=== PATIENT | female | born 1965 | race Caucasian/White ===

== ENCOUNTER 2020-07-15 07:16 | Outpatient (REF) | payer OTHER, SELFPAY ==
[2020-07-15 09:05] LABS: Alanine Aminotransferase 31 U/L (0-31); Alkaline Phosphatase 111 U/L (39-117); Aspartate Amino Transferase 21 U/L (5-31); Bilirubin Direct 0.2 mg/dL (0.0-0.5); Bilirubin Total 0.5 mg/dL (0.0-1.0); Blood Urea Nitrogen 27 mg/dL (9-16); Cholesterol 175 mg/dL; Estimated Glomerular Filt Rate > 60; HDL Cholesterol 44 mg/dL; LDL Cholesterol Calculated 110 mg/dl; Total Protein 6.8 g/dL (6.5-8.0); Triglycerides 106 mg/dL
[2020-07-15 10:34] LABS: Reflex LDLD? No
== END 2020-07-15 07:17 | disposition home or self-care (01) ==
LOC: HO.LAB 07:16
PROVIDERS: PCP Internal Medicine; Visit Provider Internal Medicine
DX: E78.00 Pure hypercholesterolemia, unspecified (principal); R79.9 Abnormal finding of blood chemistry, unspecified
CPT/HCPCS: 80061; 80076; 82565; 84520

== ENCOUNTER 2020-09-22 12:18 | Outpatient (REF) | payer OTHER, SELFPAY ==
[2020-09-22 15:01] LABS: Blood Urea Nitrogen 31 mg/dL (9-16); Estimated Glomerular Filt Rate > 60
== END 2020-09-22 12:19 | disposition home or self-care (01) ==
LOC: HO.LNP 12:18
PROVIDERS: Visit Provider Internal Medicine
DX: R79.89 Other specified abnormal findings of blood chemistry (principal)
CPT/HCPCS: 82565; 84520

== ENCOUNTER 2021-01-08 10:01 | Outpatient (REF) | payer OTHER, SELFPAY ==
[2021-01-08 10:04] LABS: MANUAL DIFF FLAG NO
[2021-01-08 10:14] LABS: Basophils Percent Auto 0.8 % (0-2); Eosinophils Absolute Auto 0.1 X10*3/uL (0.0-0.4); Hemoglobin 12.8 g/dl (12.0-16.0); Imm Gran Abs Auto 0.01 X10*3/uL (0.00-0.03); Imm Gran Pct Auto 0.2 % (0.0-0.4); Mean Platelet Volume 10.8 fL (9.4-12.3); Monocytes Absolute Auto 0.3 X10*3/uL (0.1-1.2); Neutrophils Absolute Auto 2.4 X10*3/uL (2.0-8.3); Platelet Count 285 X10*3/uL (160-400); Red Cell Distribution Width 13.8 % (11.0-16.0); White Blood Count 4.9 X10*3/uL (4.8-10.8)
[2021-01-08 10:24] LABS: Glucose Urine UA NEG (NEG); Leukocyte Esterase Urine NEG (NEG); Nitrite Urine NEG (NEG); Specific Gravity - Urine 1.015 (1.005-1.025); Urine Blood NEG (NEG); Urine Ketones NEG (NEG); Urine Protein NEG (NEG-TRACE)
[2021-01-08 10:29] LABS: Appearance Urine CLEAR; Color Urine YELLOW
[2021-01-08 10:48] LABS: Alanine Aminotransferase 26 U/L (0-31); Albumin Level 4.1 g/dL (3.5-5.0); Alkaline Phosphatase 116 U/L (39-117); Anion Gap 12 (12-20); Aspartate Amino Transferase 22 U/L (5-31); Bilirubin Total 0.6 mg/dL (0.0-1.0); Blood Urea Nitrogen 23 mg/dL (9-16); Carbon Dioxide 27 mmol/L (22-29); Chloride 107 mmol/L (96-108); Cholesterol 181 mg/dL; Estimated Glomerular Filt Rate > 60; Glucose Fasting 79 mg/dL (60-99); HDL Cholesterol 49 mg/dL; LDL Cholesterol Calculated 113 mg/dl; Potassium 4.2 mmol/L (3.3-5.1); Sodium 142 mmol/L (135-145); Total Protein 6.9 g/dL (6.5-8.0); Triglycerides 96 mg/dL
[2021-01-08 11:31] LABS: Reflex LDLD? No
== END 2021-01-08 10:02 | disposition home or self-care (01) ==
LOC: HO.LNP 10:01
PROVIDERS: Visit Provider Internal Medicine
DX: Z00.00 Encounter for general adult medical examination without abnormal findings (principal); E78.00 Pure hypercholesterolemia, unspecified; R79.9 Abnormal finding of blood chemistry, unspecified
CPT/HCPCS: 80053; 80061; 81003; 85025

== ENCOUNTER 2021-05-01 07:51 | Outpatient (REF) | payer OTHER, SELFPAY ==
--- NOTE | ~2021-05-01 | MM_ITS ---
EXAMINATION: BONE DENSITOMETRY CLINICAL INDICATION: Menopause. COMPARISON: Baseline BD dated 08/12/2017. TECHNIQUE: Using a Contour DXA System (software version: 13.1) manufactured by [employer], dual-energy x-ray absorptiometry was performed of the lumbar spine and left hip. The images are of good technical quality. Summary results are attached. FINDINGS: AP SPINE L1-L4: Current: BMD 1.010 g/cm2, Z-score -1.5, T-score -1.4, osteopenia, 10.5% decrease from baseline (<5% change is not significant). Baseline: BMD 1.129 g/cm2. LEFT FEMUR, NECK: Current: BMD 0.735 g/cm2, Z-score -1.8, T-score -2.2, osteopenia. Baseline: BMD 0.789 g/cm2. LEFT FEMUR, TOTAL: Current: BMD 0.883 g/cm2, Z-score -1.0, T-score -1.0, normal, 2.4% decrease from baseline (<5% change is not significant). Baseline: BMD 0.905 g/cm2. IDENTIFIED RISK FACTORS: Low calcium intake, menopause. HISTORY OF FRACTURE: None listed. MEDICATIONS: None listed. MM/XR DEXA axial skeleton IMPRESSION: 1. DIAGNOSIS: Osteopenia based on the lowest T-score value of -2.2 in the femoral neck applying World Health Organization criteria. 2. 10-YEAR FRACTURE RISK PREDICTION, FRAX: Major osteoporotic fracture (clinical spine, forearm, hip or shoulder) 8.7%. Hip fracture 1.2%. 3. Treatment Recommendations: NOF guidelines recommend consideration for treatment in postmenopausal women and men age 50 and older presenting with the following: -A hip or vertebral (clinical or morphometric) fracture. -T-score less than or equal to -2.5 at the femoral neck or spine after appropriate evaluation to exclude secondary causes. -Low bone mass at the hip or spine and a 10-year fracture probability by FRAX of greater than or equal to 3% for hip fracture or greater than or equal to 20% for major osteoporotic fracture based on the [place] adapted WHO algorithm. 4. Other Recommendations: All treatment decisions require clinical judgment and consideration of individual patient factors, including patient preferences, comorbidities, previous drug use, risk factors not captured in the FRAX model (e.g. frailty, falls, vitamin D deficiency, increased bone turnover, interval significant decline in bone density) and possible under or overestimation of fracture risk by FRAX. Additional medical evaluation for secondary cause of low bone mineral density may be appropriate. FUTURE SCAN RECOMMENDATION: People with diagnosed cases of osteoporosis or at high risk for fracture should have regular bone mineral density tests. For patients eligible for Medicare, routine testing is allowed once every 2 years. The testing frequency can be increased to one year for patients who have rapidly progressing disease, those who are receiving or discontinuing medical therapy to restore bone mass, or have additional risk factors.
--- NOTE | ~2021-05-01 | MM_ITS ---
EXAMINATION: MM SCREENING DIGITAL BREAST TOMOSYNTHESIS, BILATERAL CLINICAL INFORMATION: Screening. Asymptomatic. The lifetime risk of breast cancer based on the Tyrer-Cuzick Model is 9%. COMPARISON: Mammography: 09/27/2019, 06/17/2018, 02/21/2017 TECHNIQUE: Digital breast tomosynthesis is performed in both the craniocaudal and mediolateral oblique views along with computer-aided detection (CAD). Synthesized 2D images are generated from the tomosynthesis. FINDINGS: The breasts are almost entirely fatty (ACR BI-RADS breast composition Category a). There are no significant masses, abnormal calcifications, or other abnormalities. Background stromal markings are stable. No developing density. The axilla and skin contours are unremarkable. MM/MM tomosynthesis screening BI IMPRESSION: No mammographic evidence of malignancy. ASSESSMENT: BI-RADS 1: Negative RECOMMENDATION: Routine annual mammography screening. This patient's information was entered into a reminder system with a target due date for their next mammogram.
== END 2021-05-01 07:52 | disposition home or self-care (01) ==
LOC: HO.MAMMO 07:51
PROVIDERS: Visit Provider Internal Medicine
DX: Z12.31 Encounter for screening mammogram for malignant neoplasm of breast (principal); Z13.820 Encounter for screening for osteoporosis; Z78.0 Asymptomatic menopausal state
CPT/HCPCS: 77063; 77067; 77080

== ENCOUNTER 2021-07-20 10:10 | Outpatient (REF) | payer OTHER, SELFPAY ==
[2021-07-20 10:50] LABS: Alanine Aminotransferase 22 U/L (0-31); Albumin Level 3.9 g/dL (3.5-5.0); Alkaline Phosphatase 108 U/L (39-117); Aspartate Amino Transferase 18 U/L (5-31); Bilirubin Direct 0.2 mg/dL (0.0-0.5); Bilirubin Total 0.7 mg/dL (0.0-1.0); Cholesterol 173 mg/dL; HDL Cholesterol 47 mg/dL; LDL Cholesterol Calculated 92 mg/dl; Total Protein 6.7 g/dL (6.5-8.0); Triglycerides 174 mg/dL
[2021-07-20 11:00] LABS: Reflex LDLD? No
== END 2021-07-20 10:11 | disposition home or self-care (01) ==
LOC: HO.LNP 10:10
PROVIDERS: Visit Provider Internal Medicine
DX: E78.00 Pure hypercholesterolemia, unspecified (principal)
CPT/HCPCS: 80061; 80076

== ENCOUNTER 2022-01-26 10:43 | Outpatient (REF) | payer OTHER, SELFPAY ==
[2022-01-26 10:46] LABS: MANUAL DIFF FLAG NO
[2022-01-26 11:30] LABS: Appearance Urine CLEAR; Color Urine YELLOW; Glucose Urine UA NEG (NEG); Leukocyte Esterase Urine TRACE (NEG); Nitrite Urine NEG (NEG); Specific Gravity - Urine 1.025 (1.005-1.025); Urine Blood TRACE (NEG); Urine Ketones NEG (NEG); Urine Protein NEG (NEG-TRACE)
[2022-01-26 11:46] LABS: Bacteria Urine TRACE /LPF; RBC Urine 0-2 /HPF (0); Squamous Epithelial Cell Urine 1+ /LPF; WBC Urine 0-2 /HPF (0-4)
[2022-01-26 11:52] LABS: Basophils Percent Auto 0.8 % (0-2); Eosinophils Absolute Auto 0.1 X10*3/uL (0.0-0.4); Eosinophils Percent Auto 2.4 % (0-4); Hematocrit 38.1 % (37.0-47.0); Hemoglobin 12.2 g/dl (12.0-16.0); Imm Gran Abs Auto 0.01 X10*3/uL (0.00-0.03); Imm Gran Pct Auto 0.2 % (0.0-0.4); Lymphocytes Absolute Auto 2.2 X10*3/uL (1.2-4.9); Mean Corpuscular Hemoglobin 31.9 pg (27.0-33.0); Mean Corpuscular Volume 99.5 fL (80.0-98.0); Mean Platelet Volume 10.9 fL (9.4-12.3); Monocytes Absolute Auto 0.3 X10*3/uL (0.1-1.2); Monocytes Percent Auto 6.5 % (2-11); Neutrophils Absolute Auto 2.4 x10*3/uL (2.0-8.3); Neutrophils Percent Auto 47.1 % (45-73); Platelet Count 276 X10*3/uL (160-400); Red Blood Count 3.83 X10*6/uL (4.20-5.50); White Blood Count 5.1 X10*3/uL (4.8-10.8)
[2022-01-26 12:32] LABS: Alanine Aminotransferase 28 U/L (0-31); Albumin Level 3.9 g/dL (3.5-5.0); Alkaline Phosphatase 117 U/L (39-117); Anion Gap 13 (12-20); Aspartate Amino Transferase 20 U/L (5-31); Bilirubin Total 0.5 mg/dL (0.0-1.0); Blood Urea Nitrogen 19 mg/dL (9-16); Calcium 8.7 mg/dL (8.4-10.2); Carbon Dioxide 23 mmol/L (22-29); Chloride 107 mmol/L (96-108); Cholesterol 177 mg/dL; Estimated Glomerular Filt Rate > 60; Glucose Fasting 91 mg/dL (60-99); HDL Cholesterol 43 mg/dL; LDL Cholesterol Calculated 98 mg/dl; Potassium 4.3 mmol/L (3.3-5.1); Sodium 139 mmol/L (135-145); Total Protein 6.7 g/dL (6.5-8.0); Triglycerides 183 mg/dL
== END 2022-01-26 10:44 | disposition home or self-care (01) ==
LOC: HO.LNP 10:43
PROVIDERS: PCP Internal Medicine; Visit Provider Internal Medicine
DX: Z00.00 Encounter for general adult medical examination without abnormal findings (principal); E78.00 Pure hypercholesterolemia, unspecified; Z87.448 Personal history of other diseases of urinary system
CPT/HCPCS: 80053; 80061; 81001; 85025

== ENCOUNTER 2022-03-05 09:46 | Outpatient (REF) | payer OTHER, SELFPAY ==
--- NOTE | ~2022-03-05 | FL_ITS ---
EXAMINATION: XR FLUOROSCOPY UPPER GI WITH AIR CLINICAL INFORMATION: Food stuck sensation. Question Schatzki's ring. Dysphagia. COMPARISON: None TECHNIQUE: Routine upper GI air-contrast study was performed with thick barium and effervescent granules in upright and lying position. Barium swallow. FINDINGS: Following oral administration of thick barium and effervescent granules in upright view, there is normal propagation bolus from the oral cavity through the pharynx, esophagus into stomach without any evidence of obstruction, narrowing or stricture. The mucosal pattern of the esophagus is normal. There is a sliding hiatal hernia. On placing patient supine and prone lying, the rest of the visualized course and caliber of the stomach, duodenal bulb and the sweep is normal. The mucosal pattern of the stomach and the duodenum is normal. There is moderate gastroesophageal reflux into the upper esophagus. Mild noncircumferential indentation seen along the left distal esophagus is likely the GE junction. Incidental finding of cholecystectomy. FLUOROSCOPY TIME: 1.9 minutes DOSE AREA PRODUCT: 44.270 uGy-m2 (microgray-meter squared) FL/FL upper GI w air IMPRESSION: 1. Large gastroesophageal reflux with sliding hiatal hernia. 2. The rest of the upper GI exam and the esophagus appears unremarkable.
== END 2022-03-05 09:47 | disposition home or self-care (01) ==
LOC: HO.XRAY 09:46
PROVIDERS: PCP Internal Medicine; Visit Provider Internal Medicine
DX: R13.10 Dysphagia, unspecified (principal)
CPT/HCPCS: 74246

== ENCOUNTER 2022-08-06 10:49 | Outpatient (REF) | payer OTHER, SELFPAY ==
[2022-08-06 12:19] LABS: Alanine Aminotransferase 26 U/L (0-31); Albumin Level 3.8 g/dL (3.5-5.0); Alkaline Phosphatase 121 U/L (39-117); Aspartate Amino Transferase 21 U/L (5-31); Bilirubin Direct 0.2 mg/dL (0.0-0.5); Bilirubin Total 0.4 mg/dL (0.0-1.0); Cholesterol 168 mg/dL; HDL Cholesterol 44 mg/dL; LDL Cholesterol Calculated 96 mg/dl; Total Protein 6.4 g/dL (6.5-8.0); Triglycerides 141 mg/dL
[2022-08-06 13:27] LABS: Reflex LDLD? No
== END 2022-08-06 10:50 | disposition home or self-care (01) ==
LOC: HO.LNP 10:49
PROVIDERS: Visit Provider Internal Medicine
DX: E78.00 Pure hypercholesterolemia, unspecified (principal)
CPT/HCPCS: 80061; 80076

== ENCOUNTER 2022-09-24 06:57 | Day surgery (SDC) | payer OTHER, SELFPAY ==
--- NOTE | 2022-09-23 10:10 | HO.ANESPROP2 ---
Documented by User: Yamileth Amador NP 09/23/22 10:11 HPI - Anesthesia Eval Consult details Narrative: 57yo F for [facility] End[facility] Past Medical History Medical History Asthma magdi Colon polyps Depression GERD (gastroesophageal reflux disease) Hyperlipemia Tubular adenoma Surgical History Surgical History Hx of cholecystectomy Hx of colonoscopy Social History Social History Patient Tobacco Use Status: Never used Tobacco Are you DNR?: No Advance Directives: No Advance Directives Information Provided: Yes Meds Allergies Allergy/AdvReac Type Severity Reaction Status Date / Time No Known Allergies Allergy Unverified 04/10/20 15:08 Home Medications Medication Instructions Recorded Confirmed Last Taken Type albuterol sulfate 90 mcg/actuation 2 puff inhalation DAILY 09/23/22 09/23/22 Unknown History aerosol inhaler atorvastatin 40 mg tablet 1 tab PO DAILY 09/23/22 09/23/22 Unknown History citalopram 40 mg tablet 1 tab PO DAILY 09/23/22 09/23/22 Unknown History omeprazole 20 mg capsule,delayed 1 cap PO QAM 09/23/22 09/23/22 Unknown History release Exam Exam Date and Time: September 23, 2022 101 Assessment and Plan Assessment Anesthesia Assessment: Chart Reviewed Documented by User: Amina King MD 09/24/22 07:56 [facility] Past Medical History Medical History Asthma magdi Colon polyps Depression GERD (gastroesophageal reflux disease) Hyperlipemia Tubular adenoma Functional capacity: independent ambulation Patient : No Family History Family history of problems with anesthesia: No Surgical History Surgical History Hx of cholecystectomy Hx of colonoscopy History of Problems with Anesthesia: No Social History Social History Patient Tobacco Use Status: Never used Tobacco Are you DNR?: No Advance Directives: No Advance Directives Information Provided: Yes Meds Allergies Allergy/AdvReac Type Severity Reaction Status Date / Time No Known Allergies Allergy Unverified 04/10/20 15:08 Home Medications Medication Instructions Recorded Confirmed Last Taken Type albuterol sulfate 90 mcg/actuation 2 puff inhalation DAILY 09/23/22 09/23/22 Unknown History aerosol inhaler atorvastatin 40 mg tablet 1 tab PO DAILY 09/23/22 09/23/22 Unknown History citalopram 40 mg tablet 1 tab PO DAILY 09/23/22 09/23/22 Unknown History omeprazole 20 mg capsule,delayed 1 cap PO QAM 09/23/22 09/23/22 Unknown History release Exam Airway Mallampati Class: III TM Dist: >3cm Neck ROM: Full Heart: RRR Lungs: CTA Assessment and Plan Final Anesthetic Review Family History of Problems with Anesthesia: No History of Problems with Anesthesia: No NPO: Yes ASA Class: II Final Preanesthetic Review: No Changes in Pt Med Stat, Meds/Allgs Chart Reviewed, Consent Obtained/Reviewed and Anes Risks/Benef Reviewed Patient Risk: Low Procedure Risk: Low Anesthetic Plan Anesthetic Plan: MAC: Disposition: Standard PACU
[2022-09-24 06:06] VITALS: BMI 39.5
[2022-09-24 07:03] VITALS: BP 127/67; PULSE 73; RESP 18; TEMP 36.6; O2SAT 98
--- NOTE | 2022-09-24 07:10 | PC.NURSE ---
no meds takne today
[2022-09-24] MEDS: Lactated Ringers 1,000 ML 100 ML IVCONT (07:19)
--- NOTE | 2022-09-24 08:21 | MHC.SHP ---
Pre-Procedural Eval Section A Date of Service: 09/24/22 Section B Chief Complaint: screening,reflux Details of Present Illness: see h&P no chnages Relevant Family History (Specify if Yes): No Relevant Social History: None Present Medications: see Short Stay Collaborative assessment Medical History: No relevant PMH History of Previous Operations: No relevant previous surgery Allergies: Allergies Allergy/AdvReac Type Severity Reaction Status Date / Time No Known Allergies Allergy Unverified 04/10/20 15:08 Review of Systems Sugical H&P ROS: Negative: Constitution, Cardiovascular, Respiratory, Neurological, Psychiatric, Hem-Onc, Allergic/Immunologic, Gastrointestinal, Genitourinary, Musculoskeletal, Integumentary, Endocrine and Eyes/Ears/Nose/Throat Exam Surgical H&P Exam: Normal: HEENT, Normal: Heart, Normal: Lungs, Normal: Extremities, Normal: Abdomen, Normal: Skin and Normal: Neurological Plan Diagnosis/Plan: Unchanged I have reviewed the history and physical and performed a pertinent physical examination on my patient. No changes have occurred unless specified. Time Spent With Patient Time: Total time managing care of this patient today ____ minutes.
--- NOTE | 2022-09-24 09:05 | P.BOP_ITS ---
Brief Operative Note Date of Service: 09/24/22 Pre-op diagnosis: gerd screening Post-op diagnosis: same Procedure: egd colon Surgeon: Steven Rehman Anesthesia: MAC Was an Wet Chemistry Analyst used for this Procedure?: No Estimated blood loss (mL): 2 Pathology: other Condition: stable Disposition: PACU
[2022-09-24 09:07] VITALS: BP 96/52; PULSE 82; RESP 16; TEMP 36.1; O2SAT 96
[2022-09-24 09:22] VITALS: BP 116/73; PULSE 63; RESP 18; TEMP 37; O2SAT 96
--- NOTE | 2022-09-24 09:27 | HO.POSTANES ---
Post Anesthesia Evaluation Post Anesthesia Evaluation Vital Signs: Vital Signs Temp Pulse Resp BP Pulse Ox O2 Del Method O2 Flow Rate 09/24/22 09:07 97.0 F 82 16 96/52 L 96 Nasal Cannula 3 09/24/22 07:03 98 F 73 18 127/67 98 Room Air Anesthesia: Monitored Mental Status: Awake Pain Control: Satisfactory Nausea/Vomiting: None Hydration: Adequate Anesthesia-Related Issues: No Anes. Related Issues
--- NOTE | 2022-09-24 10:03 | OP_ITS ---
SURGEON: Steven Rehman MD INDICATIONS: Gastroesophageal reflux disease and colon cancer screening. PREOPERATIVE DIAGNOSIS: POSTOPERATIVE DIAGNOSIS: PROCEDURE PERFORMED: Upper endoscopy and colonoscopy. ESTIMATED BLOOD LOSS: COMPLICATIONS: ANESTHESIA: Monitored anesthesia care. ASSISTANTS: SPECIMENS: DESCRIPTION OF PROCEDURE: The procedure was performed on 09/24/2022. History and physical was performed. The risks and benefits of the procedure were explained to the patient. Informed consent was obtained. The patient was placed in the left lateral decubitus position. The Olympus video gastroscope was introduced into the esophagus, stomach, and duodenum. Examination was performed. The scope was removed. She was repositioned for colonoscopy. Digital rectal exam was performed and was found to be normal. The Olympus pediatric video colonoscope was introduced into the rectum and advanced to the cecum without difficulty. The cecum was identified by transillumination, palpation, and identification of the ileocecal valve. Examination was performed. The scope was removed. She tolerated both procedures well and was taken to the recovery area in stable condition. FINDINGS: Upper endoscopy: 1. Esophagus: The esophagus showed an irregular EG junction. There was no esophagitis. Biopsies were obtained from the EG junction. There was a small sliding hiatal hernia. 2. Stomach: The stomach showed no evidence of masses, ulcers, or polyps. Antral biopsies were obtained to evaluate for H pylori. 3. Duodenum: The bulb and 2nd portion were normal. Biopsies were obtained because of the patient's family history of celiac disease. Colonoscopy: The terminal ileum was normal. The visualized colonic mucosa was normal. The quality of the prep was good. There was no evidence of ileitis or colitis. There were a total of 3 polyps that were removed. All were less than 10 mm. Polyps in the right colon and at 80 cm were removed with the biopsy forceps. A polyp at 40 cm was removed with a cold snare. No other polyps were identified. Retroflexed examination showed internal hemorrhoids. IMPRESSION: Colon polyps, gastroesophageal reflux disease. RECOMMENDATION: Follow up the biopsy results. MD VIKTOR Estrada/VINCENT / [id number] MTDD
== END 2022-09-24 09:35 | disposition home or self-care (01) ==
PROVIDERS: PCP Internal Medicine; Visit Provider Internal Medicine Gastroenterology
PROC: (CPT 45385; principal; 2022-09-24 08:20)
DX: Z12.11 Encounter for screening for malignant neoplasm of colon (principal); Z86.010 Personal history of colon polyps; Z83.71 Family history of colonic polyps; D12.2 Benign neoplasm of ascending colon; D12.4 Benign neoplasm of descending colon; D12.5 Benign neoplasm of sigmoid colon; K64.8 Other hemorrhoids; K21.9 Gastro-esophageal reflux disease without esophagitis; K44.9 Diaphragmatic hernia without obstruction or gangrene; R06.6 Hiccough; Z83.79 Family history of other diseases of the digestive system; E78.00 Pure hypercholesterolemia, unspecified; J45.909 Unspecified asthma, uncomplicated; F32.A Depression, unspecified; Z79.899 Other long term (current) drug therapy; Z90.49 Acquired absence of other specified parts of digestive tract
CPT/HCPCS: 45385; 45380; 43239; 88305; 88342

== ENCOUNTER 2023-01-24 10:28 | Outpatient (REF) | payer OTHER, SELFPAY | END 2023-01-24 10:29 | disposition home or self-care (01) | LOC: HO.LNP 10:28 | PROVIDERS: Visit Provider Internal Medicine | DX: Z00.00 Encounter for general adult medical examination without abnormal findings (principal); E78.00 Pure hypercholesterolemia, unspecified | CPT/HCPCS: 80053; 80061; 81001; 85025 ==

== ENCOUNTER 2023-08-09 10:40 | Outpatient (REF) | payer OTHER, SELFPAY ==
[2023-08-09 11:16] LABS: Alanine Aminotransferase 26 U/L (0-31); Albumin Level 3.9 g/dL (3.5-5.0); Alkaline Phosphatase 107 U/L (39-117); Aspartate Amino Transferase 20 U/L (5-31); Bilirubin Direct 0.2 mg/dL (0.0-0.5); Bilirubin Total 0.5 mg/dL (0.0-1.0); Cholesterol 154 mg/dL (<200); HDL Cholesterol 41 mg/dL (>40); LDL Cholesterol Calculated 89 mg/dL (<100); Total Protein 7.1 g/dL (6.5-8.0); Triglycerides 122 mg/dL (<150)
== END 2023-08-09 10:41 | disposition home or self-care (01) ==
LOC: HO.LNP 10:40
PROVIDERS: Visit Provider Internal Medicine
DX: E78.00 Pure hypercholesterolemia, unspecified (principal)
CPT/HCPCS: 80061; 80076

== ENCOUNTER 2024-02-03 11:18 | Outpatient (REF) | payer OTHER, SELFPAY ==
[2024-02-03 11:21] LABS: MANUAL DIFF FLAG NO
[2024-02-03 12:00] LABS: Basophils Absolute Auto 0.1 X10*3/uL (0.0-0.2); Basophils Percent Auto 1.2 % (0-2); Eosinophils Absolute Auto 0.1 X10*3/uL (0.0-0.4); Eosinophils Percent Auto 2.1 % (0-4); Hematocrit 36.7 % (37.0-47.0); Hemoglobin 12.4 g/dl (12.0-16.0); Lymphocytes Absolute Auto 1.6 X10*3/uL (1.2-4.9); Mean Corpuscular HGB Conc 33.8 g/dl (31.0-35.0); Mean Corpuscular Hemoglobin 33.4 pg (27.0-33.0); Mean Corpuscular Volume 98.9 fL (80.0-98.0); Monocytes Absolute Auto 0.4 X10*3/uL (0.1-1.2); Monocytes Percent Auto 8.4 % (2-11); Neutrophils Absolute Auto 2.2 x10*3/uL (2.0-8.3); Neutrophils Percent Auto 51.3 % (45-73); Platelet Count 260 X10*3/uL (160-400); Red Blood Count 3.71 X10*6/uL (4.20-5.50); Red Cell Distribution Width 13.9 % (11.0-16.0); White Blood Count 4.3 X10*3/uL (4.8-10.8)
[2024-02-03 12:06] LABS: Appearance Urine Clear; Color Urine Yellow; Glucose Urine UA Negative (Negative); Leukocyte Esterase Urine Negative (Negative); Nitrite Urine Negative (Negative); Urine Blood Negative (Negative); Urine Ketones Negative (Negative); Urine Protein Negative (Neg-Trace)
[2024-02-03 12:13] LABS: Bacteria Urine None Seen (None Seen); Hyaline Casts Urine 0-2 /LPF (0-2); RBC Urine 0-2 /HPF (0-2); Squamous Epithelial Cell Urine 0-2 /HPF (0-2); WBC Urine 0-5 /HPF (0-5)
[2024-02-03 12:31] LABS: Alanine Aminotransferase 27 U/L (0-31); Alkaline Phosphatase 109 U/L (39-117); Anion Gap 12 (12-20); Aspartate Amino Transferase 19 U/L (5-31); Bilirubin Total 0.5 mg/dL (0.0-1.0); Blood Urea Nitrogen 24 mg/dL (9-16); Calcium 9.4 mg/dL (8.4-10.2); Carbon Dioxide 24 mmol/L (22-29); Chloride 107 mmol/L (96-108); Cholesterol 149 mg/dL (<200); Estimated Glomerular Filt Rate > 60; Glucose Fasting 94 mg/dL (60-99); HDL Cholesterol 37 mg/dL (>40); LDL Cholesterol Calculated 89 mg/dL (<100); Potassium 4.3 mmol/L (3.3-5.1); Sodium 139 mmol/L (135-145); Triglycerides 115 mg/dL (<150)
== END 2024-02-03 11:19 | disposition home or self-care (01) ==
LOC: HO.LNP 11:18
PROVIDERS: Visit Provider Internal Medicine
DX: Z00.00 Encounter for general adult medical examination without abnormal findings (principal); E78.00 Pure hypercholesterolemia, unspecified
CPT/HCPCS: 80053; 80061; 81001; 85025

== ENCOUNTER 2024-02-28 10:12 | Outpatient (REF) | payer OTHER, SELFPAY ==
--- NOTE | ~2024-02-28 | US_ITS ---
EXAMINATION: US EXTRACRANIAL CAROTID DUPLEX, BILATERAL CLINICAL INFORMATION: Bruit COMPARISON: Carotid duplex 01/17/2019 TECHNIQUE: Real-time ultrasound and Doppler techniques (integrating B-mode 2-D vascular images, Doppler spectral analysis and color-flow Doppler imaging) were utilized to interrogate the extracranial carotid arteries, the vertebral arteries and proximal subclavian arteries bilaterally. The degree of stenosis is determined by criteria similar to NASCET. FINDINGS: Right Side: 1. There is mild atherosclerotic plaque seen in the bifurcation/proximal ICA region. 2. The common carotid artery PSV proximally is 106 cm/s and distally 91.5 cm/s. 3. The proximal internal carotid artery velocities are 91.5 cm/s systolic and 27.6 cm/s diastolic. 4. The proximal external carotid artery PSV is 149 cm/s. 5. The vertebral artery shows antegrade flow. 6. The subclavian artery waveforms are normal. Left Side: 1. There is mild atherosclerotic plaque seen in the bifurcation/proximal ICA region. 2. The common carotid artery PSV proximally is 130 cm/s and distally 84.4 cm/s. 3. The proximal internal carotid artery velocities are 99.7 cm/s systolic and 30.5 cm/s diastolic. 4. The proximal external carotid artery PSV is 125 cm/s. 5. The vertebral artery shows antegrade flow. 6. The subclavian artery waveforms are normal. US/US carotid duplex BI IMPRESSION: 1. RIGHT: Minimal, non-hemodynamically significant stenosis of the proximal right internal carotid artery corresponding to a 0-49% stenosis by velocity criteria. 2. LEFT: Minimal, non-hemodynamically significant stenosis of the proximal left internal carotid artery corresponding to a 0-49% stenosis by velocity criteria. 3. There is no change in the category severity of disease when compared to the previous study dated 01/17/2019.
== END 2024-02-28 10:13 | disposition home or self-care (01) ==
LOC: HO.US 10:12
PROVIDERS: PCP Internal Medicine; Visit Provider Internal Medicine
DX: R09.89 Other specified symptoms and signs involving the circulatory and respiratory systems (principal)
CPT/HCPCS: 93880

== ENCOUNTER 2024-08-16 07:15 | Outpatient (REF) | payer OTHER, SELFPAY ==
[2024-08-16 11:26] LABS: MANUAL DIFF FLAG NO
[2024-08-16 11:35] LABS: Basophils Absolute Auto 0.1 X10*3/uL (0.0-0.2); Eosinophils Absolute Auto 0.1 X10*3/uL (0.0-0.4); Eosinophils Percent Auto 1.9 % (0-4); Hemoglobin 11.8 g/dl (12.0-16.0); Imm Gran Abs Auto 0.01 X10*3/uL (0.00-0.03); Imm Gran Pct Auto 0.2 % (0.0-0.4); Lymphocytes Absolute Auto 1.8 X10*3/uL (1.2-4.9); Lymphocytes Percent Auto 34.4 % (20-40); Mean Corpuscular HGB Conc 32.8 g/dl (31.0-35.0); Mean Corpuscular Hemoglobin 32.5 pg (27.0-33.0); Mean Corpuscular Volume 99.2 fL (80.0-98.0); Mean Platelet Volume 10.7 fL (9.4-12.3); Monocytes Absolute Auto 0.4 X10*3/uL (0.1-1.2); Monocytes Percent Auto 8.3 % (2-11); Neutrophils Absolute Auto 2.8 x10*3/uL (2.0-8.3); Neutrophils Percent Auto 54.2 % (45-73); Platelet Count 262 X10*3/uL (160-400); Red Blood Count 3.63 X10*6/uL (4.20-5.50); White Blood Count 5.2 X10*3/uL (4.8-10.8)
--- OUTSIDE RECORDS SUMMARY | 2024-08-16 13:50 | XMS_ITS ---
Author Organization Nishant Amador MD Address [address] [place] [phone] Care Team Providers Care Career Center Director Name Role Phone Nishant Amador Primary Care Provider REASON FOR VISIT New Refill Request Medications Medication SIG (Take, Route, Frequency, Duration) Notes Start Date End Date Status Citalopram Hydrobromide 40 MG 1 tablet Orally Once a day for 90 days Active Atorvastatin Calcium 40 MG take 1 tablet by mouth every day Orally Once a day for 90 days Active Encounters Encounter Location Date Provider Diagnosis Nishant Amador MD [address] [place] [phone] 02/24/2024 Nishant Amador Depression F32.9 and Pure hypercholesterolemia E78.00 Assessments Encounter Date Diagnosis (ICD Code) Assessment Notes Treatment Notes Treatment Clinical Notes Section Notes 02/24/2024 Depression (ICD-10 - F32.9) 02/24/2024 Pure hypercholesterolemia (ICD-10 - E78.00) Plan Of Treatment Medication Medication Name Sig Start Date Stop Date Notes Citalopram Hydrobromide 40 MG 1 tablet O rally Once a day for 90 days Atorvastatin Calcium 40 MG take 1 tablet by mouth every day Orally Once a day for 90 days Next Appt Details Provider Name:Nishant Arguello renér, 02/05/2025 07:45:00 AM, [address] [facility], Suite [facility], [place], [place], [phone], Provider Name:Nishant Arguello renér, 02/12/2025 02:30:00 PM, [address] [facility], [address], [place], [place], [phone], Progress Notes * Funmilayo LI ADOB:[birth year] (59 yo F)Acc No.[id number]:02/24/2024 Patient:?Funmilayo Li :1965???Age:59 Y???Sex:Female Address:[address] [place] [id number] * Refills? Refill Citalopram Hydrobromide Tablet, 40 MG, Orally, 90 Tablet, 1 tablet, Once a day, 90 days, Refills=3 Refill Atorvastatin Calcium Tablet, 40 MG, Orally, 90, take 1 tablet by mouth every day, Once a day, 90 days, Refills=3 * true * Date:? Generated for Eileen saucedo/Maddy/Amandeepitting on:?08/16/2024 01:50 PM EST
--- OUTSIDE RECORDS SUMMARY | 2024-08-16 13:50 | XMS_ITS ---
Author Organization Nishant Amador MD Address [address] [place] [phone] Care Team Providers Care Mechanism Assembler Name Role Phone Nishant Amador Primary Care Provider [phone] Results Component Value Reference Range Notes Complete Blood Count Auto Di ff (Not yet reviewed by provider) Interpretation: Performing Lab:[facility], [address] [place] [id number] Notes/Report: White Blood Count 5.2 4.8-10.8 X10*3/uL Red Blood Count 3.63 4.20-5.50 X10*6/uL Hemoglobin 11.8 12.0-16.0 g/dl Hematocrit 36.0 37.0-47.0 % Mean Corpuscular Volume 99.2 80.0-98.0 fL Mean Corpuscular Hemoglobin 32.5 27.0-33.0 pg Mean Corpuscular HGB Conc 32.8 31.0-35.0 g/dl Red Cell Distribution Width 14.0 11.0-16.0 % Platelet Count 262 160-400 X10*3/uL Mean Platelet Volume 10.7 9.4-12.3 fL Neutrophils Percent Auto 54.2 45-73 % Imm Gran Pct Auto 0.2 0.0-0.4 % Lymphocytes Percent Auto 34.4 20-40 % Monocytes Percent Auto 8.3 2-11 % Eosinophils Percent Auto 1.9 0-4 % Basophils Percent Auto 1.0 0-2 % NRBC Pct Auto 0.0 0.0-0.2 /100WBC Neutrophils Absolute Auto 2.8 2.0-8.3 x10*3/u L Imm Gran Abs Auto 0.01 0.00-0.03 X10*3/uL Lymphocytes Absolute Auto 1.8 1.2-4.9 X10*3/u L Monocytes Absolute Auto 0.4 0.1-1.2 X10*3/uL Eosinophils Absolute Auto 0.1 0.0-0.4 X10*3/u L Basophils Absolute Auto 0.1 0.0-0.2 X10*3/uL NRBC Abs Auto 0.000 0.0-0.012 X10*3/uL REASON FOR VISIT CBC Encounters Encounter Location Date Provider Diagnosis Nishant Amador MD [address] [place] [address] [place] [phone] 08/16/2024 Nishant Amador Neutropenia, unspecified type D70.9 Assessments Encounter Date Diagnosis (ICD Code) Assessment Notes Treatment Notes Treatment Clinical Notes Section Notes 08/16/2024 Neutropenia, unspecified type (ICD-10 - D70.9) Plan Of Treatment Pending Test Test Name Order Date Complete Blood Count Auto Diff Next Appt Details Provider Name:Nishant perla, 02/05/2025 07:45:00 AM, [address] [place] [address], [address] [place] [address], [phone], Provider Name:Nishant perla, 02/12/2025 02:30:00 PM, [address] [place] [address], [address] [place] [address], [phone], Progress Notes * Funmilayo LI ADOB:[birth year] (59 yo F)Acc No.[id number]:08/16/2024 Progress Note Patient:?Funmilayo LI Provider:?Nishant Amador MD :1965???Age:59 Y???Sex:Female D ate:08/16/2024 Address:[address] [place], [place] [id number] Subjective: * Chief Complaints: * ???1. CBC. * Medical History:? Objective: * Vitals:? Assessment: * Assessment: 1.?Neutropenia, unspecified type - D70.9 (Primary)??? Plan: * Treatment: * Procedure Codes:?87168 VENIP UNCT, ROUTINE* * * The named appointment provid er may or may not be the originator of this progress note, and it is not deemed complete until electronically signed by the appointment provider. Sign off status: Pending * Provider:?Nishant Amador MD Date:?0 08/16/2024 Generated for Eileen saucedo/Maddy/Everettesmitting on:?08/16/2024 01:50 PM EST
--- OUTSIDE RECORDS SUMMARY | 2024-08-16 13:50 | XMS_ITS ---
Author Organization Nishant Amador MD Address [address] [place] [phone] Care Team Providers Care Stevedore Hold Name Role Phone Nishant Amador Primary Care Provider [phone] Allergies No Known Allergies REASON FOR VISIT 2 MO F/U Medications Medication SIG (Take, Route, Frequency, Duration) Notes Start Date End Date Status Atorvastatin Calcium 40 MG TAKE ONE TABL ET BY MOUTH EVERY DAY for 90 Active Omeprazole 20 MG TAKE ONE CAPSULE BY MOUTH EVERY DAY 30 MINUTES BEFORE BREAKFAST for 30 Active Ventolin HFA 108 (90 Base) MCG/ACT 2 puffs Inhalation Once a day Active Citalopram Hydrobromide 40 MG TAKE ONE TABLET BY MOUTH EVERY DAY Active Aviane 0.1-20 MG-MCG 1 tablet Orally Lore ly for Three Weeks, 1 Week off Not-Taking Cyclobenzaprine HCl 5 MG 1 tablet as nee ded Orally Three times a day for 7 days 12/28/2018 Not-Taking Immunizations Vaccine Route Administration Date Status Comme nts Fluarix Quadrivalent - 150 IM Intramuscular 04/16/2024 Adm inistered Vital Signs Blood pressure systolic 132 mm Hg 04/16/20 Blood pressure diastolic 74 mm Hg 024 Height 65 in 04/16/2024 Weight 232 lbs 04/16/2024 BMI 38.60 kg/m2 04/16/2024 weight is up 2 pounds since 02-10-24 Encounters Encounter Location Date Provider Diagnosis Nishant Amador MD [address] [place] [address] [place] [phone] 04/16/2024 Nishant Amador Depression F32.9 ; Mild intermittent asthma without complication J45.20 ; Right carotid bruit R09.89 and Encounter for immunization Z23 Assessments Encounter Date Diagnosis (ICD Code) Assessment Notes Treatment Notes Treatment Clinical Notes Section Notes 04/16/2024 Depression (ICD-10 - F32.9) remains the same 04/16/2024 Mild intermittent asthma without complication (ICD-10 - J45.20) doing well and not needing inhaler 04/16/2024 Right carotid bruit (ICD-10 - R09.89) no change in minimal plaque 04/16/2024 Encounter for immunization (ICD-10 - Z23) Plan Of Treatment Medication Medication Name Sig Start Date Stop Date Notes Ventolin HFA 108 (90 Base) MCG/ACT 2 puffs Inhalation Once a day Citalopram Hydrobromide 40 MG TAKE ONE T ABLET BY MOUTH EVERY DAY Treatment Notes Assessment Notes Depression remains the same Mild intermittent asthma without complic ation doing well and not needing inhaler Right carotid bruit no change in minimal plaque Next Appt Details Provider Name:Nishant perla, 02/05/2025 07:45:00 AM, [address] [place] [address], [address], [place], [place], [phone], Provider Name:Nishant perla, 02/12/2025 02:30:00 PM, [address] [place] [address], [place] [address], [place], [place], [phone], Progress Notes * Funmilayo LI ADOB:[birth year] (59 yo F)Acc No.[id number]:04/16/2024 Progress Notes Patient:?Funmilayo Li Provider:?Nishant Amador MD :1965???Age:59 Y???Sex:Female D ate:04/16/2024 Address:[address] [place] [address] [id number] Subjective: * Chief Complaints: * ???2 MO F/U * HPI: ???Symptom(s):? patient is a 59 yo female here for 2 month follow up. * ROS:?General/Constitutional:?Denies?Chills.?Denies?Fatigue.?Denies?Fever.?Denies?Headache.?ENT:?Patient denies?decreased sense of smell, any loss of taste, sore throat.?Denies?Sore throat.?Respiratory:?Comments?used inhaler once last week.? but not usually.?Denies?Cough.?Denies?Shortness of breath at rest.?Denies?Shortness of breath with exertion.?Gastrointestinal:?Denies?Diarrhea.?Denies?Nausea.?Musculoskeletal:?Patient denies?muscle aches.?Peripheral Vascular:?Patient denies?red and blue toes.? * Medical History:? * Surgical History:? * Hospitalization/Major Diagno stic Procedure:? * Medications:?TakingVentolin HFA 108 (90 Base) MCG/ACT Aerosol Solution 2 puffs Inhalation Once a dayOmeprazole 20 MG Capsule Delayed Release TAKE ONE CAPSULE BY MOUTH EVERY DAY 30 MINUTES BEFORE BREAKFAST Atorvastatin Calcium 40 MG Tablet TAKE ONE TABLET BY MOUTH EVERY DAY Citalopram Hydrobromide 40 MG Tablet TAKE ONE TABLET BY MOUTH EVERY DAY Taking Ventolin HFA 108 (90 Base) MCG/ACT Aerosol Solution 2 puffs Inhalation Once a dayTaking Omeprazole 20 MG Capsule Delayed Release TAKE ONE CAPSULE BY MOUTH EVERY DAY 30 MINUTES BEFORE BREAKFAST Taking Atorvastatin Calcium 40 MG Tablet TAKE ONE TABLET BY MOUTH EVERY DAY Taking Citalopram Hydrobromide 40 MG Tablet TAKE ONE TABLET BY MOUTH EVERY DAY Not-Taking/PRNCyclobenzaprine HCl 5 MG Tablet 1 tablet as needed Orally Three times a dayAviane 0.1-20 MG-MCG Tablet 1 tablet Orally Daily for Three Weeks, 1 Week offMedication List reviewed and reconciled with the patientNot-Taking/PRN Cyclobenzaprine HCl 5 MG Tablet 1 tablet as needed Orally Three times a dayNot-Taking/PRN Aviane 0.1-20 MG-MCG Tablet 1 tablet Orally Daily for Three Weeks, 1 Week offMedication List reviewed and reconciled with the patient * Allergies:?N.K.D.A.yes[Aller gies Verified] Objective: * Vitals:?Ht: 65, Wt:232, BMI: 38.60, BP:132/74 weight is up 2 pounds since 02-10-24. * Examination: ???General Examination: ?GENERAL APPEARANCE:? alert, well hydrated, in no distress .?HEAD:? normocephalic.?SKIN:? good turgor.?HEART:? no murmurs, rubs, gallops, regular rate and rhythm.?LUNGS:? no wheezes, rales, rhonchi, good air movement, clear to auscultation bilaterally.? Assessment: * Assessment: 1.?Depression - F32.9 (Prima ry)?2.?Mild intermittent asthma without complication - J45.20?3.?Right carotid bruit - R09.89?4.?Encounter for immunization - Z23? Plan: * Treatment: 2.?Mild intermittent asthma without complication? Continue Ventolin HFA Aerosol Solution, 108 (90 Base) MCG/ACT, 2 puffs, Inhalation, Once a day.?? Notes: doing well and not needing inhaler?? 3.?Right carotid bruit? Notes: no change in minimal plaque?? * Immunizations:? Fluarix Quadrivalent - 150 : 0.5 mL (Dose No:1) (Route: Intramuscular) given by Christen Guajardo on Left Deltoid * Procedure Codes:?21407 IMMUN IZATION [id number] FLU VACCINE NO PRESERV 3 & > * Preventive Medicine:? ??Immunizations:?Influenza?Have you had a flu shot since the most recent March 25??Yes.? * * Sign off status: Completed true * Provider:?Nishant Amador MD Date:?0 04/16/2024 Generated for Rosei sheryl/Maddy/eTransmitting on:?08/16/2024 01:50 PM EST History and Physical Notes * HPI (History of Present Illness) Category Sub-Category Detail Notes Category Not es Symptom(s) patient is a 59 yo female here for 2 month follow up. Examination Category Sub-Category Detail Notes Category Not es General Examination GENERAL APPEARANCE: alert, w ell hydrated, in no distress HEAD: normocephalic HEART: no murmurs, rubs, ga llops, regular rate and rhythm LUNGS: no wheezes, rales, r honchi, good air movement, clear to auscultation bilaterally SKIN: good turgor
--- OUTSIDE RECORDS SUMMARY | 2024-08-16 13:50 | XMS_ITS | Patient Health Record ---
Author Organization [facility] Address [address] [place] [phone] Care Team Providers Care Stock Unloader Name Role Phone Nishant Amador MD Primary Care Provider Karin Rehman Jr, Steven Unavailable ALLERGIES No Known Allergies REASON FOR REFERRAL No Information MEDICATIONS Medication SIG (Take, Route, Frequency, Duration) Notes Start Date End Date Status Citalopram Hydrobromide 20 MG 1 tablet Orally Once a day Active Ventolin HFA 108 (90 Base) MCG/ACT 2 puffs as needed Inhalation every 4 hrs Active Atorvastatin Calcium 40 MG 1 tablet Oral ly Once a day for 30 day(s) Active Omeprazole 20 MG 1 capsule 30 minutes before morning meal Orally Once a day for 30 day(s) Active IMMUNIZATIONS Vaccine Route Administration Date Status Comme nts Influenza Unknown 08/11/2022 Refused SOCIAL HISTORY Sex Assigned At : Social History Observation Description Sex Assigned At Unknown PROBLEMS Problem Type ICD Code Onset Dates Problem Status W/U Status Risk SNOMED Code Notes Problem Colon cancer screening (Z12.11) Active confirmed 049577590 Problem Gastroesophageal reflux disease (K21.9) Active confirmed Gastroesophagea l reflux disease (961059869) Problem Gastroesophageal reflux disease, unspecified whether esophagitis present (K21.9) Active confirmed [id number] PLAN OF TREATMENT Future Test Test Name Order Date COLONOSCOPY 01/23/2015 UPPER GI ENDOSCOPY 08/11/2022 COLONOSCOPY 08/11/2022 Insurance Providers Payer Name Payer Address Payer Phone Subscriber Number Group Number Insured Name Patient Relationship to Insured Coverage Start Date Coverage End Date [facility] [address] [facility] [place] [phone] [id number] NETTA LI Self - patient is the insured MEDICAL (GENERAL) HISTORY Medical History History ICD Code depression asthma Elevated cholesterol Gastroesophageal reflux disease Colon polyps, colonoscopy 01/23/15, multiple tubular adenomas, three-year followup Surgical History Surgery Date(Month/Year) cholecystectomy 12/2011 birthmark removal 1965
--- OUTSIDE RECORDS SUMMARY | 2024-08-16 13:51 | XMS_ITS | Clinical Summary ---
Author Organization [facility] Address [address] [address] Care Team Providers Care Side Puller Name Role Phone Nishant Amador MD Primary Care Provider [phone] Allergies No known active allergies Medications citalopram (CeleXA) 40 MG tablet Take 40 mg by mouth 1 (one) time each day 10/11/2020 Active atorvastatin (LIPITOR) 20 MG tablet Take 20 mg by mouth 1 (one) time each day 10/13/2020 Active Ventolin HFA 108 (90 Base) MCG/ACT inhaler INHALE 2 PUFFS BY MOUTH EVERY DAY 09/27/2020 Active loratadine (CLARITIN) 10 MG tablet Take 10 mg by mouth 1 (one) time each day Active Active Problems Problem Noted Date Diagnosed Date Depressive disorder 10/30/2020 Obesity 10/30/2020 Hypercholesterolemia 10/30/2020 Chronic kidney disease, stage 2 (mild) Hyperlipidemia 10/30/2020 Family History Medical History Relation Comments Diabetes Father Heart disease Father Hypertension Father Cancer Mother Diabetes Sister Relation Status Comments Father Mother Sister Social History Tobacco Use Types Packs/Day Years Used Date Smoking Tobacco: Never Assessed Comments Unknown Sex and Gender Information Value Date Recorded Sex Assigned at Not on file Legal Sex Female 2:53 PM EDT Gender Identity Not on file Sexual Orientation Not on file Last Filed Vital Signs Vital Sign Reading Time Taken Comments Blood Pressure 137/62 10/30/2020 3:29 PM EDT Pulse 83 10/30/2020 3:29 PM EDT Temperature - - Respiratory Rate - - Oxygen Saturation 97% 10/30/2020 3:29 PM EDT Inhaled Oxygen Concentration - - Weight 97.5 kg (215 lb) 10/30/2020 3:29 PM EDT Height - - Body Mass Index - - Plan of Treatment Health Maintenance Due Date Last Done Comments Breast Cancer Screening 1965 Pneumococcal Vaccine: Pediat rics (0 to 5 Years) and At-Risk Patients (6 to 64 Years) (1 of 2 - PCV) 1969 Colorectal Cancer Screening: Annual FOBT 01/10/2012 Colorectal Cancer Screening: Colonoscopy 01/10/2012 Colorectal Cancer Screening: Sigmoidoscopy 01/10/2012 Influenza Vaccine (#1) 2024 Hepatitis B Vaccine Aged Out No longe r eligible based on patient's age to complete this topic Insurance [facility] [facility] [employer] Member Subscriber Plan / Payer (Ef fective 2020-Present) Name:Funmilayo Heart Relation to Subscriber:Self Name:Funmilayo Heart Payer ID:Not on file Group ID:Not on file Type:Not on file Address: [place] [id number] [employer] Care Teams Side Puller Relationship Specialty Start Date End Date Nishant Amador MD [address] CAREN VARNER PCP - General Internal Medicine 10/06/20
== END 2024-08-16 07:16 | disposition home or self-care (01) ==
LOC: HO.LNP 07:15
PROVIDERS: Visit Provider Internal Medicine
DX: D70.9 Neutropenia, unspecified (principal)
CPT/HCPCS: 85025

== ENCOUNTER 2025-02-05 10:19 | Outpatient (REF) | payer OTHER, SELFPAY ==
--- OUTSIDE RECORDS SUMMARY | 2024-12-31 07:45 | XMS_ITS ---
Author Organization Nishant Amador MD Address [address] [place] [phone] Care Team Providers Care Category Manager Name Role Phone Nishant Amador Primary Care Provider [phone] Allergies No Known Allergies REASON FOR VISIT SINUS INFECTION W/ FEVER 102. POST NASAL DRIP, COVID NEG headache, nonproductive cough congestion, runny nose x 4 days, Video [phone] Medications Medication SIG (Take, Route, Frequency, Duration) [...] Status W/U Status Risk Notes Problem Sinusitis (80234369) Sinusitis (J32.9) Active confirmed Vital Signs Temperature 102 degrees Fahrenheit Height 65 in 12/31/2024 Weight 240 lbs 12/31/2024 BMI 39.93 kg/m2 12/31/2024 weight is 240 at home BP not taken temp is 102 Encounters Encounter Location Date Provider Diagnosis Nishant Amador MD [address] [place] [address] [address] [place] [phone] 12/31/2024 Nishant Amador Sinusitis J32.9 and Mild [...] for use Next Appt Details Provider Name:Nishant Arguello ieyudith, 02/12/2025 02:30:00 PM, [address], [address], [place], [place], [phone], Progress Notes * Funmilayo LI ADOB:[birth year] (59 yo F)Acc No.[id number]:12/31/2024 Patient: Funmilayo DUDLEY Provider: Oli Amador MD :1965 A ge:59 Y S ex:Female Date:12/31/2024 Address:[address] [place], [place] [phone] Subjective: * Chief Complaints: * S INUS INFECTION W/ FEVER 102. POST NASAL DRIP, COVID NEG headache, nonproductive cough congestion, runny nose x 4 daysVideo [phone] * HPI: S ymptom(s): Telehealth L ocation [...] production. A dmits W heezing. G astrointestinal: Denies D iarrhea. D enies N ausea. * Medical History: * Surgical History: * [...] MD Date: 0 12/31/2024 Generated for Eileen saucedo/Maddy/Amandeepitting on: 0 02/05/2025 11:28 AM EDT History and Physical Notes * HPI (History of Present Illness) Category Sub-Category Detail Notes Category Not es Symptom(s) Telehealth Location of [facility] ider rendering services:: [address], [address] patient is a [...]
[2025-02-05 10:21] LABS: MANUAL DIFF FLAG NO
[2025-02-05 10:59] LABS: Hematocrit 36.5 % (37.0-47.0); Hemoglobin 12.2 g/dl (12.0-16.0); Imm Gran Abs Auto 0.01 X10*3/uL (0.00-0.03); Imm Gran Pct Auto 0.2 % (0.0-0.4); Lymphocytes Absolute Auto 1.9 X10*3/uL (1.2-4.9); Mean Corpuscular HGB Conc 33.4 g/dl (31.0-35.0); Mean Corpuscular Hemoglobin 32.1 pg (27.0-33.0); Mean Corpuscular Volume 96.1 fL (80.0-98.0); NRBC Abs Auto 0.000 X10*3/uL (0.0-0.012); NRBC Pct Auto 0.0 /100WBC (0.0-0.2); Platelet Count 273 X10*3/uL (160-400); Red Blood Count 3.80 X10*6/uL (4.20-5.50); White Blood Count 4.5 X10*3/uL (4.8-10.8)
[2025-02-05 11:02] LABS: Appearance Urine Clear; Glucose Urine UA Negative (Negative); PH 6.5 (5.0-9.0); Specific Gravity - Urine 1.015 (1.005-1.025)
[2025-02-05 11:13] LABS: Alanine Aminotransferase 25 U/L (0-31); Albumin Level 4.0 g/dL (3.5-5.0); Alkaline Phosphatase 109 U/L (39-117); Anion Gap 13 (12-20); Aspartate Amino Transferase 24 U/L (5-31); Blood Urea Nitrogen 18 mg/dL (9-16); Calcium 8.8 mg/dL (8.4-10.2); Carbon Dioxide 27 mmol/L (22-29); Chloride 106 mmol/L (96-108); Cholesterol 152 mg/dL (<200); Estimated Glomerular Filt Rate > 60; HDL Cholesterol 36 mg/dL (>40); Potassium 3.9 mmol/L (3.3-5.1); Sodium 142 mmol/L (135-145); Total Protein 7.0 g/dL (6.5-8.0); Triglycerides 178 mg/dL (<150)
--- OUTSIDE RECORDS SUMMARY | 2025-02-05 11:28 | XMS_ITS | Clinical Summary ---
Author Organization [facility] Address [address] [address] Care Team Providers Care Ice Carver Name Role Phone Nishant Amador MD Primary Care Provider [phone] Allergies No known active allergies Medications citalopram [...] Comments Breast Cancer Screening 1965 Pneumococcal Vaccine: 50+ Ye ars (1 of 2 - PCV) 1982 Colorectal Cancer Screening: Annual FOBT 01/10/2012 Colorectal Cancer Screening: Colonoscopy 01/10/2012 Colorectal Cancer Screening: Sigmoidoscopy 01/10/2012 Influenza Vaccine (#1) 2025 Hepatitis B Vaccine Aged Out No longe r eligible based on patient's age to complete this topic Insurance [facility] Medicaid [employer] Medicaid Care Teams Ice Carver Relationship Specialty Start Date End Date Nishant Amador MD [address] [place], [place] PCP - General Internal Medicine 10/06/20
--- OUTSIDE RECORDS SUMMARY | 2025-02-05 11:28 | XMS_ITS | Patient Health Record ---
Author Organization [facility] Address [address] [place] [address] Care Team Providers Care Proposal Editor Name Role Phone Nishant Amador MD Primary Care Provider Karin Rehman Jr, Steven Unavailable [phone] Allergies No Known Allergies Reason For Referral No Information Medications Medication SIG (Take, Route, Frequency, Duration) [...] Once a day for 30 day(s) Active Immunizations Vaccine Route Administration Date Status Comme nts Influenza Unknown 08/11/2022 Refused Problems Problem Type SNOMED Code ICD Code Onset Dates Problem Status W/U Status Risk Notes Problem 380224023 Colon cancer screening (Z12.11) Active confirmed Problem Gastroesophageal reflux disease (K21.9) Active confirmed Problem 566447787 Gastroesophageal reflux disease, unspecified whether esophagitis present (K21.9) Active confirmed Plan Of Treatment Future Test Test Name Order Date COLONOSCOPY 01/23/2015 UPPER GI ENDOSCOPY 08/11/2022 COLONOSCOPY 08/11/2022 Insurance Providers Payer Name Payer Address Payer Phone Subscriber Number Group Number Insured Name Patient Relationship to Insured Coverage Start Date Coverage End Date [facility] [address] [place] [phone] [id number] NETTA LI Self - patient is the insured Medical (General) History Medical History History ICD Code depression asthma Elevated cholesterol Gastroesophageal reflux disease Colon polyps, colonoscopy 01/23/15, multiple tubular adenomas, three-year followup Surgical History Surgery Date(Month/Year) cholecystectomy 12/2011 birthmark removal 1963
== END 2025-02-05 10:20 | disposition home or self-care (01) ==
LOC: HO.LNP 10:19
PROVIDERS: Visit Provider Internal Medicine
DX: Z00.00 Encounter for general adult medical examination without abnormal findings (principal); E78.00 Pure hypercholesterolemia, unspecified; D70.9 Neutropenia, unspecified
CPT/HCPCS: 80053; 80061; 81001; 85025

== ENCOUNTER 2025-02-26 10:20 | Outpatient (REF) | payer OTHER, SELFPAY ==
--- OUTSIDE RECORDS SUMMARY | 2024-12-31 07:45 | XMS_ITS ---
Author Organization Nishant Amador MD Address [address] [place] [phone] Care Team Providers Care Saddle Stitcher Name Role Phone Nishant Amador Primary Care Provider Allergies No Known Allergies REASON FOR VISIT SINUS INFECTION W/ FEVER 102. POST NASAL DRIP, COVID NEG headache, nonproductive cough congestion, runny nose x 4 days, Video [phone] Medications Medication SIG (Take, Route, Frequency, Duration) Notes Start Date End Date Status Citalopram Hydrobromide 40 MG TAKE ONE TABLET BY MOUTH EVERY DAY Active Albuterol Sulfate HFA 108 (90 Base) MCG/ACT 1 puff as needed Inhalation every 4 hrs for 30 days 12/31/2024 Active Ventolin HFA 108 (90 Base) MCG/ACT 2 puffs Inhalation Once a day Active Atorvastatin Calcium 40 MG TAKE ONE TABL ET BY MOUTH EVERY DAY for 90 Active Amoxicillin-Pot Clavulanate 875-125 MG 1 tablet Orally every 12 hrs for 10 days 12/31/2024 Active Aviane 0.1-20 MG-MCG 1 tablet Orally Lore ly for Three Weeks, 1 Week off Not-Taking Omeprazole 20 MG TAKE ONE CAPSULE BY MOUTH EVERY DAY 30 MINUTES BEFORE BREAKFAST. for 30 Active Cyclobenzaprine HCl 5 MG 1 tablet as nee ded Orally Three times a day for 7 days 12/28/2018 Not-Taking Problems Problem Type SNOMED Code ICD Code Onset Dates Problem Status W/U Status Risk Notes Problem Sinusitis (62305414) Sinusitis (J32.9) Active confirmed Vital Signs Temperature 102 degrees Fahrenheit Height 65 in 12/31/2024 Weight 240 lbs 12/31/2024 BMI 39.93 kg/m2 12/31/2024 weight is 240 at home BP not taken temp is 102 Encounters Encounter Location Date Provider Diagnosis Nishant Amador MD [address] [place] [address] [place] [phone] 12/31/2024 Nishant Amador Sinusitis J32.9 and Mild intermittent asthma without complication J45.20 Assessments Encounter Date Diagnosis (ICD Code) Assessment Notes Treatment Notes Treatment Clinical Notes Section Notes 12/31/2024 Sinusitis (ICD-10 - J32.9) patient verbalized understanding of medication and directions for use 12/31/2024 Mild intermittent asthma without complication (ICD-10 - J45.20) patient verbalized understanding of medication and directions for use Plan Of Treatment Medication Medication Name Sig Start Date Stop Date Notes Albuterol Sulfate HFA 108 (9 0 Base) MCG/ACT 1 puff as needed Inhalation every 4 hrs for 30 days 12/31/2024 Amoxicillin-Pot Clavulanate 875-125 MG 1 tablet Orally every 12 hrs for 10 days 12/31/2024 Treatment Notes Assessment Notes Sinusitis patient verbalized u nderstanding of medication and directions for use Mild intermittent asthma wit hout complication patient verbalized understanding of medication and directions for use Next Appt Details Provider Name:Nishant perla, 08/15/2025 07:15:00 AM, [address] [place] [address], [address], [place], [place], [phone], Provider Name:Nishant perla, 08/22/2025 02:00:00 PM, [address] [place] [address], Suite [facility], [place], [place], [phone], Provider Name:Nishant Arguello ier, 02/07/2026 07:15:00 AM, [address], [address], [place], [place], [phone], Provider Name:Nishant Arguello ier, 02/14/2026 11:00:00 AM, [address], [address], [place], [place], [phone], Progress Notes * MISHAFunmilayo OKEEFE ADOB:[birth year] (59 yo F)Acc No.[id number]:12/31/2024 Patient: Funmilayo DUDLEY Provider: Oli Amador MD :1965 A ge:59 Y S ex:Female Date:12/31/2024 Address:[address] [place], [place] [phone] Subjective: * Chief Complaints: * S INUS INFECTION W/ FEVER 102. POST NASAL DRIP, COVID NEG headache, nonproductive cough congestion, runny nose x 4 daysVideo [phone] * HPI: S ymptom(s): Telehealth L ocation of provider rendering services: [address], [address], L ocation of patient: a t address listed in demographics for today's visit, P atient identification confirmed using: GI Caputo ame, T elehealth method: V ideo conference where patient is visible to the provider of care, C onsent: P atient verbally consented to treatment, Patient verbally consented to billing insurance company, Patient informed of any privacy concerns related to method of visit, T otal time spend talking with patient (minutes) 1 8. patient is a 59 yo video telehealth visit, female here for sinus infection. * ROS: G eneral/Constitutional: Admits C hills. A dmits F atigue. A dmits F ever. A dmits H eadache. E NT: Denies S ore throat. R espiratory: Admits C ough. D enies S hortness of breath at rest. A dmits S hortness of breath with exertion. D enies S putum production. A dmits W heezing. G astrointestinal: Caleb Scruggs iarrhea. D fortino lynn. * Medical History: * Surgical History: * Hospitalization/Major Diagno stic Procedure: * Medications: T akingAtorvastatin Calcium 40 MG Tablet TAKE ONE TABLET BY MOUTH EVERY DAY Citalopram Hydrobromide 40 MG Tablet TAKE ONE TABLET BY MOUTH EVERY DAY Ventolin HFA 108 (90 Base) MCG/ACT Aerosol Solution 2 puffs Inhalation Once a day Omeprazole 20 MG Capsule Delayed Release TAKE ONE CAPSULE BY MOUTH EVERY DAY 30 MINUTES BEFORE BREAKFAST. Taking Atorvastatin Calcium 40 MG Tablet TAKE ONE TABLET BY MOUTH EVERY DAY Taking Citalopram Hydrobromide 40 MG Tablet TAKE ONE TABLET BY MOUTH EVERY DAY Taking Ventolin HFA 108 (90 Base) MCG/ACT Aerosol Solution 2 puffs Inhalation Once a day Taking Omeprazole 20 MG Capsule Delayed Release TAKE ONE CAPSULE BY MOUTH EVERY DAY 30 MINUTES BEFORE BREAKFAST. Not-Taking/PRNCyclobenzaprine HCl 5 MG Tablet 1 tablet as needed Orally Three times a day Aviane 0.1-20 MG-MCG Tablet 1 tablet Orally Daily for Three Weeks, 1 Week off Medication List reviewed and reconciled with the patientNot-Taking/PRN Cyclobenzaprine HCl 5 MG Tablet 1 tablet as needed Orally Three times a day Not-Taking/PRN Aviane 0.1-20 MG-MCG Tablet 1 tablet Orally Daily for Three Weeks, 1 Week off Medication List reviewed and reconciled with the patient * Allergies: N .K.D.A.yes[Allergies Verified] Objective: * Vitals: H t: 65, Wt: 240, BMI:39.93, Temp:102, Wt-k.86. weight is 240 at home BP not taken temp is 102. * Examination: G eneral Examination: GENERAL APPEARANCE: w ell developed, well nourished. ? Assessment: * Assessment: 1. S inusitis - J32.9 (Primary) 2 . M ild intermittent asthma without complication - J45.20 Plan: * Treatment: 2. M ild intermittent asthma without complication Start Albuterol Sulfate HFA Aerosol Solution, 108 (90 Base) MCG/ACT, 1 puff as needed, Inhalation, every 4 hrs, 30 days, 1, Refills 5. Notes: patient verbalized understanding of medication and directions for use * Procedure Codes: * * Sign off status: Completed true * Provider: Oli Amador MD Date: 0 12/31/2024 Generated for Eileen saucedo/Maddy/Stone on: 0 02/26/2025 10:57 AM EDT History and Physical Notes * HPI (History of Present Illness) Category Sub-Category Detail Notes Category Not es Symptom(s) Telehealth Location of [facility] rendering services:: [address], [address] patient is a 59 yo video telehealth visit, female here for sinus infection Location of patient:: at address listed in demographics for today's visit Patient identification confirmed using:: Name, Telehealth method:: Video co nference where patient is visible to the provider of care Consent:: Patient verbally c onsented to treatment, Patient verbally consented to billing insurance company, Patient informed of any privacy concerns related to method of visit Total time spend talking with patient (m inutes): 18 Examination Category Sub-Category Detail Notes Category Not es General Examination GENERAL APPEARANCE: well developed , well nourished
--- NOTE | ~2025-02-26 | MM_ITS ---
EXAMINATION: MM SCREENING DIGITAL BREAST TOMOSYNTHESIS, BILATERAL CLINICAL INFORMATION: Screening. Asymptomatic. COMPARISON: Mammography: Comparison is made with available priors TECHNIQUE: Digital breast mammography with tomosynthesis is performed in both the craniocaudal and mediolateral oblique views along with computer-aided detection (CAD). FINDINGS: The breasts are almost entirely fatty (ACR BI-RADS breast composition Category a). There are no significant masses, abnormal calcifications, or other abnormalities. MM/MM tomosynthesis screening BI IMPRESSION: No mammographic evidence of malignancy. ASSESSMENT: BI-RADS BI-RADS 1 - Negative RECOMMENDATION: Routine annual mammography screening. 1 year F/U This examination should not preclude the clinical evaluation of a suspicious palpable abnormality. This patient's information was entered into a reminder system with a target due date for their next mammogram. Electronically signed by: Radha Partida DO 03/07/2025 03:02 PM EDT
--- OUTSIDE RECORDS SUMMARY | 2025-02-26 10:58 | XMS_ITS | Clinical Summary ---
Author Organization [facility] Facility Address [address] [address] Care Team Providers Care Physical Therapy Assistant Instructor Name Role Phone Nishant Amador MD Primary Care Provider [phone] Allergies No known active allergies Medications citalopram [...] Health Medicaid [employer] [facility] Medicaid Care Teams Physical Therapy Assistant Instructor Relationship Specialty Start Date End Date Nishant Amador MD [address] [place], [place] PCP - General Internal Medicine 10/06/20
--- OUTSIDE RECORDS SUMMARY | 2025-02-26 10:58 | XMS_ITS | Patient Health Record ---
Author Organization 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 Name Role Phone Nishant Amador MD Primary Care Provider Karin Rehman Jr, Steven Unavailable Allergies No Known Allergies Reason For Referral [...] Problem Status W/U Status Risk Notes Problem [id number] Colon cancer screening (Z12.11) Active confirmed Problem Gastroesophageal reflux disease (K21.9) Active confirmed Problem [id number] Gastroesophageal reflux disease, unspecified whether esophagitis present (K21.9) Active confirmed Plan Of Treatment Future Test Test Name Order Date COLONOSCOPY 01/23/2015 UPPER GI ENDOSCOPY 08/11/2022 COLONOSCOPY 08/11/2022 Insurance Providers Payer Name Payer Address Payer Phone Subscriber Number Group Number Insured Name Patient Relationship to Insured Coverage Start Date Coverage End Date [facility] [address] [place] [phone] [id number] LI Self - patient is the insured Medical (General) History Medical History History ICD Code depression asthma Elevated cholesterol Gastroesophageal reflux disease Colon polyps, colonoscopy 01/23/15, multiple tubular adenomas, three-year followup Surgical History Surgery Date(Month/Year) cholecystectomy 12/2011 birthmark removal 1965
== END 2025-02-26 10:21 | disposition home or self-care (01) ==
LOC: HO.MAMMO 10:20
PROVIDERS: Visit Provider Internal Medicine
DX: Z12.31 Encounter for screening mammogram for malignant neoplasm of breast (principal)
CPT/HCPCS: 77063; 77067

== ENCOUNTER → 2025-02-26 10:30 | Outpatient (BNV) | payer OTHER, SELFPAY | PROVIDERS: Visit Provider Internal Medicine | DX: Z12.31 Encounter for screening mammogram for malignant neoplasm of breast (principal) | CPT/HCPCS: 77063; 77067 ==